=== PATIENT | female | born 1980 | race Caucasian/White ===

== ENCOUNTER 2019-10-10 21:53 | Emergency (ER) | payer MEDICARE ==
[~2019-10-10] VITALS: Ht 162.6 cm; Wt 63.5 kg
--- NOTE | 2019-10-10 22:40 | Emergency Department Note ---
History of Present Illnes History of Present Illness Chief Complaint: Neurological History of Present Illness This is a 39 year old female /o tingling to right sided tingling and numbing sensation that started Sunday. Patient states she has a history of CVA when she was 12. Patient able to ambulate at this time. Has left sided residual defecits from old CVA. No right sided facial droop noted. 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 Patient c/o headache for about a week.. pt also c/o pain to right side of neck for 1 week as well. Historian: Patient Arrival Mode: Car Onset (how long ago): day(s) (4) Location: right arm, head, right neck Quality: pain,tingling Radiation: Reports non-radiation Severity: moderate Onset quality: gradual Duration (how long): week(s) (7) Chronicity: new Context: Denies recent illness, Denies recent surgery, Denies trauma/injury Relieving factors: none Exacerbating factors: movement Associated symptoms: Reports denies other symptoms Treatments prior to arrival: none Past Medical/Family History Physician Review I have reviewed the patient's past medical and family history. Any updates have been documented here. Past Medical History Recent Fever: No Clinical Suspicion of Infectio: No New/Unexplained Change in Ment: No Past Medical History: CVA Other Medical History: subclavian rupture Past Surgical History: Other Surgery: open heart surgery Social History Smoking Cessation: Unknown if ever smoked Counseling Performed: No Any Illegal Drug Use: No Other Any Pre-Existing Lines (PICC,: No Review of Systems Review of Systems Constitutional: Reports no symptoms EENTM: Reports no symptoms Cardiovascular: Reports no symptoms Respiratory: Reports no symptoms Gastrointestinal: Reports no symptoms Genitourinary: Reports no symptoms Musculoskeletal: Reports as per HPI Integumentary: Reports no symptoms Neurological: Reports as per HPI Psychological: Reports no symptoms Endocrine: Reports no symptoms Hematological/Lymphatic: Reports no symptoms Physical Exam Related Data Allergies: Coded Allergies: No Known Allergies (Unverified , 10/10/19) Triage Vital Signs Vital Signs Date Time Temp Pulse Resp B/P (MAP) Pulse Ox O2 Delivery O2 Flow Rate FiO2 10/10/19 21:58 98.4 61 20 111/94 100 Room Air Vital signs reviewed: Yes Physical Exam CONSTITUTIONAL Constitutional: Present well-developed, Present well-nourished; Absent distressed HENT HENT: Present normocephalic, Present atraumatic, Present oropharynx gregorio r/moist, Present nose normal HENT L/R: Present left ext ear normal, Present right ext ear normal EYES Eyes: Reports PERRL, Reports conjunctivae normal NECK Neck: Present ROM normal PULMONARY Pulmonary: Present effort normal, Present breath sounds normal CARDIOVASCULAR Cardiovascular: Present regular rhythm, Present heart sounds normal, Present capillary refill normal, Present normal rate GASTROINTESTINAL Abdominal: Present soft, Present nontender, Present bowel sounds normal GENITOURINARY Genitourinary: Present exam deferred SKIN Skin: Present warm, Present dry MUSCULOSKELETAL Patient with tenderness to right paraspinal muscles of the neck through trapezius muscle and right side palpation of these muscles causes tingling go down her right arm. NEUROLOGICAL Patient with residual left upper extremity was previous stroke at age 12. Right side Exam is normal no deficits no sensory deficits no strength deficits noted. PSYCHOLOGICAL Psychological: Present mood/affect normal, Present judgement normal Results Laboratory Laboratory Laboratory Tests Test 10/10/19 22:13 10/10/19 22:12 White Blood Count 10.74 x10e3/uL (4.8-10.8) Red Blood Count 4.60 x10e6/uL (3.6-5.1) Hemoglobin 13.9 g/dL (12.0-16.0) Hematocrit 39.8 % (34.2-44.1) Mean Corpuscular Volume 86.5 fL (81-99) Mean Corpuscular Hemoglobin 30.2 pg (28-32) Mean Corpuscular Hemoglobin Concent 34.9 g/dL (31-35) Red Cell Distribution Width 12.0 % (11.7-14.4) Platelet Count 331 x10e3/uL (140-360) Neutrophils (%) (Auto) 57.6 % (38.7-80.0) Lymphocytes (%) (Auto) 34.2 % (18.0-39.1) Monocytes (%) (Auto) 6.5 % (4.4-11.3) Eosinophils (%) (Auto) 0.7 % (0.0-6.0) Basophils (%) (Auto) 0.5 % (0.0-1.0) Neutrophils # (Auto) 6.2 (2.1-6.9) Lymphocytes # (Auto) 3.7 (1.0-3.2) Monocytes # (Auto) 0.7 (0.2-0.8) Eosinophils # (Auto) 0.1 (0.0-0.4) Basophils # (Auto) 0.1 (0.0-0.1) Absolute Immature Granulocyte (auto 0.05 x10e3/uL (0-0.1) Sodium Level 138 mmol/L (136-145) Potassium Level 3.8 mmol/L (3.5-5.1) Chloride Level 104 mmol/L (98-107) Carbon Dioxide Level 20 mmol/L (22-29) Anion Gap 17.8 mmol/L (8-16) Blood Urea Nitrogen 10 mg/dL (7-26) Creatinine 0.71 mg/dL (0.57-1.11) Estimat Glomerular Filtration Rate > 60 ML/MIN (60-) BUN/Creatinine Ratio 14 (6-25) Glucose Level 102 mg/dL (74-118) Calcium Level 9.5 mg/dL (8.4-10.2) Magnesium Level 2.0 MG/DL (1.3-2.1) Urine Color Yellow (YELLOW) Urine Clarity Clear (CLEAR) Urine pH 5.5 (5 - 7) Urine Specific [place] 1.025 (1.010-1.025) Urine Protein Negative (NEGATIVE) Urine Glucose (UA) Negative (NEGATIVE) Urine Ketones Trace (NEGATIVE) Urine Blood Negative (NEGATIVE) Urine Nitrite Negative (NEGATIVE) Urine Bilirubin Negative (NEGATIVE) Urine Urobilinogen 0.2 mg/dL (0.2 - 1) Urine Leukocyte Esterase Negative (NEGATIVE) Urine RBC 0-5 /HPF (0-5) Urine WBC 0-5 /HPF (0-5) Urine Epithelial Cells Moderate /LPF (NONE) Urine Bacteria Few /HPF (NONE) Urine Mucus Moderate (RARE) Urine Test Negative (NEGATIVE) Lab results reviewed: Yes Imaging Imaging results reviewed: Yes Impressions rocedure: [id number] CT/CT BRAIN WO Exam Date: 10/10/19 Exam Time: 2227 REPORT STATUS: Signed EXAMINATION: Head CT without contrast. HISTORY:Tingling and numbness on the right side. Prior history of stroke. COMPARISON:None. TECHNIQUE: Multidetector axial images were obtained from the foramen magnum to the vertex without contrast. The images were reconstructed using brain and bone algorithms. Thin section brain images were reformatted into coronal and sagittal planes. Dose modulation, iterative reconstruction, and/or weight based adjustment of the mA/kV was utilized to reduce the radiation dose to as low as reasonably achievable. Intravenous contrast: None IMAGE QUALITY: Suboptimal evaluation particularly at the level of skull base and posterior fossa structures due to streak artifacts. FINDINGS: Skull/scalp: Expected postoperative changes from prior right frontoparietal craniotomy and left frontal luis daniel hole. No acute abnormality. Parenchyma: Cortical/subcortical based hypodensity in right frontal lobe that extends to right frontal centrum semiovale while he, curtis radiata with intrinsic 2 punctate dystrophic calcification with associated regional volume loss represents chronic encephalomalacia possibly related to prior vascular insult or trauma. Focal, linear hypodensity in left middle frontal gyrus beneath the left frontal luis daniel hole represents encephalomalacia/scoliosis possibly along the track of prior ventriculostomy catheter or related to prior intervention. Focal hypodensity in right thalamus and right putamen represents chronic lacunar infarct. No acute hemorrhage, mass or acute major vascular territorial infarct. No acute hemorrhage, mass or acute major vascular territorial infarct. Arteries: No density suggestive of thrombosis. Dural sinuses: No abnormal density suggestive of thrombosis. Ventricles: Exvacuodilatation of the anterior body and frontal horn of right lateral ventricle. No acute hydrocephalus. Extra-axial spaces: No abnormal density. Brain volume: Normal for age. Craniocervical junction: No mass, Chiari malformation, or basilar invagination. Sella: No mass. Paranasal/mastoid sinuses: Prior left mastoidectomy changes. IMPRESSION: 1. No acute intracranial abnormality, particularly no acute hemorrhage, mass or acute major vascular territorial infarct. 2. Chronic encephalomalacia in right frontal lobe possibly related to prior vascular insult or trauma. 3. Chronic lacunar infarct in right thalamus and putamen. 4. Linear focal gliosis/encephalomalacia in left middle frontal gyrus beneath the left frontal luis daniel hole possibly related to prior intervention/ventricular catheter placement. 5. Postoperative changes from prior right frontoparietal craniotomy and left frontal luis daniel hole. Signed by: Dr. Kylah Irizarry M.D. on 10/10/2019 10:48 PM Dictated By: KYLAH IRIZARRY MD 48 Transcribed By: RASHMI on 10/10/192247 COPY TO: PAWEL SILVA MD~ Assessment & Plan Medical Decision Making MDM Patient with headache and right arm tingling pain and right-sided neck CBC, BMP, UA, CT brain ordered to eval for intracranial abnormality, electrolyte abnormality, UTI Toradol 30 mg IV ordered, Norflex his grams IM ordered Patient with tension headache and cervical radiculopathy. Discharged with prescriptions of tramadol 50 mg 1 by mouth every 6 hours when necessary pain, Flexeril 10 mg one by mouth every 8 hours when necessary muscle spasm Reassessment Reassessment time: 23:53 Reassessment PT STATES PAIN IS MUCH BETTER AND SHE IS READY TO GO HOME Assessment & Plan Final Impression: (1) Tension headache (2) Cervical radiculopathy Depart Disposition: HOME, SELF-CARE Last Vital Signs Date Time Temp Pulse Resp B/P (MAP) Pulse Ox O2 Delivery O2 Flow Rate FiO2 10/10/19 21:58 98.4 61 20 111/94 100 Room Air PAWEL SILVA MD Oct 10, 2019 22:40
[2019-10-10 22:48] LABS: BILIRUBIN,URINE NEGATIVE (NEGATIVE); CLARITY,URINE CLEAR (CLEAR); COLOR,URINE YELLOW (YELLOW); KETONES,URINE TRACE (NEGATIVE); LEUKOCYTE ESTERASE ,URINE NEGATIVE (NEGATIVE); NITRITE,URINE NEGATIVE (NEGATIVE); PREGNANCY TEST, URINE NEGATIVE (NEGATIVE); PROTEIN,URINE DIPSTICK NEGATIVE (NEGATIVE); URINE UROBILINOGEN 0.2 mg/dL (0.2 - 1)
--- NOTE | 2019-10-10 22:51 | Diagnostic Imaging Report ---
EXAMINATION: Head CT without contrast. HISTORY:Tingling and numbness on the right side. Prior history of stroke. COMPARISON:None. TECHNIQUE: Multidetector axial images were obtained from the foramen magnum to the vertex without contrast. The images were reconstructed using brain and bone algorithms. Thin section brain images were reformatted into coronal and sagittal planes. Dose modulation, iterative reconstruction, and/or weight based adjustment of the mA/kV was utilized to reduce the radiation dose to as low as reasonably achievable. Intravenous contrast: None IMAGE QUALITY: Suboptimal evaluation particularly at the level of skull base and posterior fossa structures due to streak artifacts. FINDINGS: Skull/scalp: Expected postoperative changes from prior right frontoparietal craniotomy and left frontal luis daniel hole. No acute abnormality. Parenchyma: Cortical/subcortical based hypodensity in right frontal lobe that extends to right frontal centrum semiovale while he, curtis radiata with intrinsic 2 punctate dystrophic calcification with associated regional volume loss represents chronic encephalomalacia possibly related to prior vascular insult or trauma. Focal, linear hypodensity in left middle frontal gyrus beneath the left frontal luis daniel hole represents encephalomalacia/scoliosis possibly along the track of prior ventriculostomy catheter or related to prior intervention. Focal hypodensity in right thalamus and right putamen represents chronic lacunar infarct. No acute hemorrhage, mass or acute major vascular territorial infarct. No acute hemorrhage, mass or acute major vascular territorial infarct. Arteries: No density suggestive of thrombosis. Dural sinuses: No abnormal density suggestive of thrombosis. Ventricles: Exvacuodilatation of the anterior body and frontal horn of right lateral ventricle. No acute hydrocephalus. Extra-axial spaces: No abnormal density. Brain volume: Normal for age. Craniocervical junction: No mass, Chiari malformation, or basilar invagination. Sella: No mass. Paranasal/mastoid sinuses: Prior left mastoidectomy changes. IMPRESSION: 1. No acute intracranial abnormality, particularly no acute hemorrhage, mass or acute major vascular territorial infarct. 2. Chronic encephalomalacia in right frontal lobe possibly related to prior vascular insult or trauma. 3. Chronic lacunar infarct in right thalamus and putamen. 4. Linear focal gliosis/encephalomalacia in left middle frontal gyrus beneath the left frontal luis daniel hole possibly related to prior intervention/ventricular catheter placement. 5. Postoperative changes from prior right frontoparietal craniotomy and left frontal luis daniel hole. Signed by: Dr. Kylah Gimenez M.D. on 10/10/2019 10:48 PM
[2019-10-10 22:54] LABS: BACTERIA,URINE FEW /HPF; EPITHELIAL CELLS,URINE MODERATE /LPF; MUCUS,URINE MODERATE (RARE); RBC,URINE 0-5 /HPF (0-5); WBC,URINE (MAN) 0-5 /HPF (0-5)
[2019-10-10 22:56] LABS: BASOPHILS # (AUTO) 0.1 (0.0-0.1); BASOPHILS % 0.5 % (0.0-1.0); EOSINOPHILS # (AUTO) 0.1 (0.0-0.4); EOSINOPHILS % 0.7 % (0.0-6.0); HEMATOCRIT 39.8 % (34.2-44.1); HEMOGLOBIN 13.9 g/dL (12.0-16.0); LYMPHOCYTES # (AUTO) 3.7 (1.0-3.2); LYMPHOCYTES % 34.2 % (18.0-39.1); MEAN CORPUSCULAR HEMOGLOBIN 30.2 pg (28-32); MEAN CORPUSCULAR HGB CONC 34.9 g/dL (31-35); MEAN CORPUSCULAR VOLUME 86.5 fL (81-99); MONOCYTES # (AUTO) 0.7 (0.2-0.8); MONOCYTES % 6.5 % (4.4-11.3); NEUTROPHILS # (AUTO) 6.2 (2.1-6.9); NEUTROPHILS % 57.6 % (38.7-80.0); PLATELET COUNT 331 x10e3/uL (140-360)
[2019-10-10] MEDS ORDERED: KETOROLAC TROMETHAMINE 30 MG/ML VIAL IV STA (22:59)
[2019-10-10] MEDS ORDERED: ORPHENADRINE CITRATE 30 MG/ML VIAL IM ONE (23:00)
[2019-10-10 23:14] LABS: ANION GAP 17.8 mmol/L (8-16); BLOOD UREA NITROGEN 10 mg/dL (7-26); BUN/CREATININE RATIO 14 (6-25); CALCIUM 9.5 mg/dL (8.4-10.2); CARBON DIOXIDE 20 mmol/L (22-29); CHLORIDE 104 mmol/L (98-107); CREATININE, SERUM 0.71 mg/dL (0.57-1.11); EST GLOMERULAR FILTRATION RATE > 60 ML/MIN (60-); GLUCOSE 102 mg/dL (74-118); POTASSIUM 3.8 mmol/L (3.5-5.1); SODIUM 138 mmol/L (136-145)
[2019-10-10 23:53] VITALS: BP 103/77
--- OUTSIDE RECORDS SUMMARY | 2019-10-11 00:30 | XMS REPORT | Continuity of Care Document ---
Author Author [facility] Organization [facility] Address [address] [place] [address] Phone Unavailable Care Team Providers Care Retail Event Assistant Name Role Phone Mio SILVA Unavailable Problems Condition Name Condition Details Condition Category Status Onset Date Resolution Date Last Treatment Date Treating Clinician Comments Source Cervical nerve root impingement Cervical nerve root impingement Dis ease Active 2016-02-03 00:00:00 [facility] kush Attention deficit hyperactivity disorder (ADHD), predo minantly inattentive type Attention deficit hyperactivity disorder (ADHD), predominantly inattentive type Disease Active 2015-11-10 00:00:00 [facility] Depressive disorder Depressive disorder Disease Active 2015-11-10 00:00 :00 [facility] Anxiety disorder Anxiety disorder Disease Active 2015-11-10 00:00:00 [facility] Neck pain Neck pain Disease Active 2015-11-09 00:00:00 [facility] Numbness and tingling of right arm Numbness and tingling of righ t arm Disease Active 2015-11-08 00:00:00 [facility] OM (otitis media), recurrent OM (otitis media), recurrent Disease Active 2015-11-08 00:00:00 [facility] kush Acute pain of right shoulder Acute pain of right shoulder Disease Active 2015-10-21 00:00:00 [facility] Allergies, Adverse Reactions, Alerts This patient has no known allergies or adverse reactions. Family History Family Member Diagnosis Comments Start Date Stop Date Source Natural father Alcohol/Drug Valeriano hein Maternal grandmother Diabetes [facility] Social History Social Habit Start Date Stop Date Quantity Comments Source Alcohol Comment socially Bal He alth Sex [facility] Alcohol intake 2016-08-04 00:00:00 2016-08-04 00:00:00 Current drinker of alcohol (finding) [facility] Smoking Status Start Date Stop Date Source Former smoker 2016-08-04 00:00:00 2016-08-04 00:00:00 [place] [facility] Medications Ordered Medication Name Filled Medication Name Start Date Stop Da te Current Medication? Ordering Clinician Indication Dosage Frequency Signature (SIG) Comments Components Source citalopram (CELEXA) 20 mg tablet 2016-08-04 00:00:00 Yes Attention deficit hyperactivity disorder (ADHD), predominantly inattentive type 20mg QD Take 1 tablet by mouth daily. [facility] amphetamine-dextroamphetamine (ADDERALL XR, 30MG,) 30 mg extended release capsule 2016-08-04 00:00:00 Yes Atten tion deficit hyperactivity disorder (ADHD), predominantly inattentive type 30mg T ayah 1 capsule by mouth every morning. [facility] amphetamine-dextroamphetamine (ADDERALL XR, 30MG,) 30 mg extended release capsule 2016-08-04 00:00:00 Yes Atten tion deficit hyperactivity disorder (ADHD), predominantly inattentive type 30mg T ayah 1 capsule by mouth every morning. [facility] amphetamine-dextroamphetamine (ADDERALL XR, 30MG,) 30 mg extended release capsule 2016-08-04 00:00:00 Yes Atten tion deficit hyperactivity disorder (ADHD), predominantly inattentive type 30mg T ayah 1 capsule by mouth every morning. [facility] traMADol (ULTRAM) 50 mg tablet 2016-02-03 09:52:41 Yes 50mg Take 50 mg by mouth every 6 hours as needed for Pain. [facility] gabapentin (NEURONTIN) 600 mg tablet 2016-02-03 00:00:00 Yes Neck pain 600mg Take 1 tablet by mouth 3 times daily. [facility] methocarbamol (ROBAXIN-750) 750 mg tablet 2016-02-03 00:00:0 0 Yes Neck pain 750mg Take 1 tablet by mouth 3 times daily. [facility] ibuprofen (MOTRIN) 600 mg tablet 2015-12-22 08:55:47 Yes 600mg Take 600 mg by mouth every 4 hours as needed for Pain. [facility] LORazepam (ATIVAN) 1 mg tablet 2015-11-11 00:00:00 Yes Neck pain Take 30 mins prior to MRI for claustrophobia. [facility] cyclobenzaprine (FLEXERIL) 10 mg tablet 2015-11-08 00:00:00 Yes Numbness and tingling of right arm 10mg Take 1 tablet by mouth 3 times daily as needed for Muscle Spasms. [facility] sulindac (CLINORIL) 200 mg tablet 2015-11-08 00:00:00 Yes Numbness and tingling of right arm 200mg Q.5D Take 1 tablet by mouth 2 times daily . [facility] Procedures This patient has no known procedures. Plan of Care Planned Activity Planned Date Details Comments Source Future Scheduled Test 2019-11-13 00:00:00 IMM Influenza Seas onal Nov to April (>/= 19 yrs) [code = IMM Influenza Seasonal Nov to April (>/= 19 yrs)] [facility] Future Scheduled Test 2002 00:00:00 Screening for tania gnant neoplasm of cervix (procedure) [code = 571154506] [facility] Encounters Start Date/Time End Date/Time Encounter Type Admission Type [facility] Care Department Encounter ID Source 2016-10-27 00:00:00 2016-10-27 00:00:00 Outpatient [facility] [id number] [facility] 2016-10-17 00:00:00 2016-10-17 00:00:00 Outpatient [facility] [id number] [facility] 2016-08-04 11:11:14 2016-08-04 11:11:14 Outpatient [facility] [id number] [facility] 2016-06-06 07:59:08 2016-06-06 07:59:08 Outpatient [facility] [id number] [facility] Results Test Description Test Time Test Comments Results Result Comments Source CT BRAIN WO 2019-10-10 22:38:00 [place] [address] Patient Name: GLADYS BIGGS MR #: [id number] : 1980 Age/Sex: 39/F Req #: [id number] Adm Physician: Ordered by: PAWEL SILVA MD Report #: [id number] Location: ER Room/Bed: Procedure: [id number] CT/CT BRAIN WO Exam Date: 10/10/19 Exam Time: 2228 REPORT STATUS: Signed EXAMINATION: Head CT without contrast. HISTORY:Tingling and numbness on the right side. Prior history of stroke. COMPARISON:None. TECHNIQUE: Multidetector axial images were obtained from the foramen magnum to the vertex without contrast. The images were reconstructed using brain and bone algorithms. Thin section brain images were reformatted into coronal and sagittal planes. Dose modulation, iterative reconstruction, and/or weight based adjustment of the mA/kV was utilized to reduce the radiation dose to as low as reasonably achievable. Intravenous contrast: None IMAGE QUALITY: Suboptimal evaluation particularly at the level of skull base and posterior fossa structures due to streak artifacts. FINDINGS: Skull/scalp: Expected postoperative changes from prior right frontoparietal craniotomy and left frontal luis daniel hole. No acute abnormality. Parenchyma: Cortical/subcortical based hypodensity in right frontal lobe that extends to right frontal centrum semiovale while he, curtis radiata with intrinsic 2 punctate dystrophic calcification with associated regional volume loss represents chronic encephalomalacia possibly related to prior vascular insult or trauma. Focal, linear hypodensity in left middle frontal gyrus beneath the left frontal luis daniel hole represents encephalomalacia/scoliosis possibly along the track of prior ventriculostomy catheter or related to prior intervention. Focal hypodensity in right thalamus and right putamen represents chronic lacunar infarct. No acute hemorrhage, mass or acute major vascular territorial infarct. No acute hemorrhage, mass or acute major vascular territorial infarct. Arteries: No density suggestive of thrombosis. Dural sinuses: No abnormal density suggestive of thrombosis. Ventricles: Exvacuodilatation of the anterior body and frontal horn of right lateral ventricle. No acute hydrocephalus. Extra-axial spaces: No abnormal density. Brain volume: Normal for age. Craniocervical junction: No mass, Chiari malformation, or basilar invagination. Sella: No mass. Paranasal/mastoid sinuses: Prior left mastoidectomy changes. IMPRESSION: 1. No acute intracranial abnormality, particularly no acute hemorrhage, mass or acute major vascular territorial infarct. 2. Chronic encephalomalacia in right frontal lobe possibly related to prior vascular insult or trauma. 3. Chronic lacunar infarct in right thalamus and putamen. 4. Linear focal gliosis/encephalomalacia in left middle frontal gyrus beneath the left frontal luis daniel hole possibly related to prior inte rvention/ventricular catheter placement. 5. Postoperative changes from prior right frontoparietal craniotomy and left frontal luis daniel hole. Signed by: Dr. Kylah Gimenez M.D. on 10/10/2019 10:48 PM Dictated By: KYLAH GIMENEZ MD 47 Transcribed By: RASHMI on 10/10/192247 COPY TO: PAWEL SILVA MD
--- OUTSIDE RECORDS SUMMARY | 2019-10-11 00:30 | XMS REPORT | Clinical Summary ---
Author Author [facility] Organization [facility] Address Unknown Phone Unavailable Care Team Providers Care Bit Sander Name Role Phone PCP Unavailable Allergies No Known Allergies Medications End Date Status Medication Sig Dispensed Refills Start Date Active traMADol (ULTRAM) 50 mg Take 50 mg by 0 tablet mouth every 6 hours as needed for Pain. Active ibuprofen (MOTRIN) 600 mg Take 600 mg 0 tablet by mouth every 4 hours as needed for Pain. Active cyclobenzaprine Take 1 tablet 90 tablet 1 11/08/19 1 (FLEXERIL) 10 mg by mouth 3 6 tabletIndications: Neck times daily pain, Numbness and as needed for tingling of right arm Muscle Spasms. Active sulindac (CLINORIL) 200 Take 1 tablet 60 tablet 1 mg tabletIndications: by mouth 2 6 Neck pain, Numbness and times daily. tingling of right arm Active LORazepam (ATIVAN) 1 mg Take 30 mins 1 tablet 0 0 tabletIndications: prior to MRI 6 Numbness and tingling of for right arm, Neck pain claustrophobi a. Active gabapentin (NEURONTIN) Take 1 tablet 90 tablet 2 1 600 mg tabletIndications: by mouth 3 6 Cervical nerve root times daily. impingement, Numbness and tingling of right arm, Neck pain Active methocarbamol Take 1 tablet 90 tablet 2 (ROBAXIN-750) 750 mg by mouth 3 6 tabletIndications: times daily. Cervical nerve root impingement, Numbness and tingling of right arm, Neck pain Active citalopram (CELEXA) 20 mg Take 1 tablet 30 tablet 3 tabletIndications: by mouth 7 Attention deficit daily. hyperactivity disorder (ADHD), predominantly inattentive type Active amphetamine-dextroampheta Take 1 30 capsule 0 06/23/201 mine (ADDERALL XR, 30MG,) capsule by 7 30 mg extended release mouth every capsuleIndications: morning. Attention deficit hyperactivity disorder (ADHD), predominantly inattentive type Active amphetamine-dextroampheta Take 1 30 capsule 0 mine (ADDERALL XR, 30MG,) capsule by 7 30 mg extended release mouth every capsuleIndications: morning. Attention deficit hyperactivity disorder (ADHD), predominantly inattentive type Active amphetamine-dextroampheta Take 1 30 capsule 0 mine (ADDERALL XR, 30MG,) capsule by 7 30 mg extended release mouth every capsuleIndications: morning. Attention deficit hyperactivity disorder (ADHD), predominantly inattentive type Active Problems Problem Noted Date Cervical nerve root impingement 02/03/2016 Attention deficit hyperactivity disorder (ADHD), pred ominantly inattentive 11/10/2015 type Depressive disorder 11/10/2015 Anxiety disorder 11/10/2015 Neck pain 11/09/2015 Numbness and tingling of right arm 11/08/2015 OM (otitis media), recurrent 11/08/2015 Acute pain of right shoulder 10/21/2015 Family History Medical History Relation Name Comments Alcohol/Drug Father Diabetes Maternal Grandmother Relation Name Status Comments Brother Alive 7 Daughter Alive 1 Father Alive Maternal Grandfather Maternal Grandmother Mother Alive Paternal Grandfather Paternal Grandmother Sister Alive 5 Son Alive 1 Social History Date Tobacco Use Types Packs/Day Years Used Former Smoker Smokeless Tobacco: Never Used Tobacco Cessation: Counseling Given: Yes Drinks/Week oz/Week Comments Alcohol Use socially Yes Sex Assigned at Date Recorded Not on file Industry Job Start Date Occupation Not on file Not on file Not on file Travel End Travel History Travel Start No recent travel history available. Last Filed Vital Signs Not on file Plan of Treatment Health Maintenance Due Date Last Done Comments Cervical Cancer Scrn (3 2002 Yrs) IMM Influenza Seasonal 11/13/2019 Oct to April (>/= 19 yrs) Results Not on fileafter 10/10/2018
== END 2019-10-10 23:58 | disposition home or self-care (01) ==
LOC: ER 21:59
DX: G44.209 Tension-type headache, unspecified, not intractable (principal); M54.12 Radiculopathy, cervical region; Z86.73 Personal history of transient ischemic attack (TIA), and cerebral infarction without residual deficits
CPT/HCPCS: 36415; 70450; 80048; 81001; 81025; 83735; 85025; 99284; J1885; J2360

== ENCOUNTER 2020-08-16 15:57 | Emergency (ER) | payer MEDICARE ==
[~2020-08-16] VITALS: Ht 162.6 cm; Wt 63.5 kg
[2020-08-16] MEDS ORDERED: DEXAMETHASONE 4 MG TAB PO STA (17:55)
[2020-08-16] MEDS ORDERED: LIDOCAINE 4% PATCH TP STA (17:55)
[2020-08-16] MEDS ORDERED: KETOROLAC TROMETHAMINE 30 MG/ML VIAL IM STA (17:55)
[2020-08-16] MEDS ORDERED: ACETAMINOPHEN 325 MG TAB PO ONE (18:00)
[2020-08-16] MEDS ORDERED: LIDOPATCH1 EACH TOP (18:03)
[2020-08-16] MEDS ORDERED: DEXAMETHASONE SOD PHOS 10 MG/1 ML VIAL ONE (18:12)
== END 2020-08-16 18:16 | disposition home or self-care (01) ==
LOC: ER 17:55
DX: M25.511 Pain in right shoulder (principal)
CPT/HCPCS: 73030; 93005; 99282; J1100; J1885